=== PATIENT | male | born 1965 | race Caucasian/White ===

== ENCOUNTER 2017-08-13 10:17 | Emergency (ER) | payer SELFPAY ==
--- NOTE | 2017-08-13 10:52 | ERNOTE ---
Lower Extremity HPI - General Lower Extremities Pain: hip: left Time Seen by Provider: 08/13/17 10:23 Source: patient Exam Limitations: no limitations - Immun/Allergies/Home Medications Immunizations: IMMUNIZATION HX Immunizations Up to Date Yes History of Influenza Vaccine No Hx Pneumococcal Vaccination No Allergies/Adverse Reactions: Allergies Allergy/AdvReac Type Severity Reaction Status Date / Time No Known Allergies Allergy Verified 08/13/17 10:30 Home Medications: HOME MEDICATIONS Cyclobenzaprine HCl [Flexeril] 10 mg PO TID PRN #30 tab 08/13/17 [Last Taken Unknown] Naproxen [Naprosyn] 500 mg PO BID #60 tablet 08/13/17 [Last Taken Unknown] traMADol HCL [Ultram] 50 mg PO QID PRN #20 tablet 08/13/17 [Last Taken Unknown] - History of Present Illness Narrative: Patient was working on a roof yesterday and somehow lost his balance and fell approximately 10 feet landing on the left leg primarily and now has pain in the left knee left lumbosacral area and left sacroiliac region. Patient is having muscle spasms on the left side of the back as well that originated in the lumbosacral region. Occurred: yesterday Method of Injury: Reports: fell Reason for Fall: Reports: lost balance Loss of Consciousness: Reports: no loss of consciousness Associated Symptoms: Reports: other injuries - painful weightbearing on the left side Other Injuries: Reports: back, other - left knee Prior Treament: Reports: recently seen, other - patient was seen by his chiropractor yesterday and got a chiropractic adjustment Review of Systems - Review of Systems Constitutional: Present: See HPI EYE: Present: no symptoms reported ENT: Present: no symptoms reported Respiratory: Present: no symptoms reported Cardiology: Present: no symptoms reported Gastrointestinal/Abdominal: Present: no symptoms reported Genitourinary: Present: no symptoms reported Musculoskeletal: Present: See HPI Skin: Present: no symptoms reported Neurological: Present: no symptoms reported Endocrine: Present: no symptoms reported Hematologic/Lymphatic: Present: no symptoms reported Psych: Present: no symptoms reported - Patient's Past Medical History Patient History - Medical: No pertinent hx Patient History - Cardiac/Respiratory: No pertinent hx Patient History - Cancer: No Hx of Cancer Patient History - Surgical Procedures: Total Knee Replacement, Hernia Repair Patient History - Other: None - Social History Living Situations: home Abuse History: No History of abuse Psych History: No pertinent hx Smoking Status: Never smoker Alcohol Use: occasionally Drug Use: none - Immunizations Immunizations Up to Date: Yes Hx Pneumococcal Vaccination: No History of Influenza Vaccine: No Physical Exam - Physical Exam General Appearance: Present: wd/wn, alert, moderate distress Head Exam: Present: normal inspection Eye Exam: Normal inspection: bilateral, PERRL: bilateral Ears, Nose, Throat: Present: normal ENT inspection, H, normal pharynx Neck: Present: normal inspection, nontender Respiratory: Present: no respiratory distress, normal breath sounds, no accessory muscle use, chest nontender, lungs clear Cardiovascular/Chest: Present: regular rate, rhythm, no murmur, normal peripheral pulses Gastrointestinal/Abdominal: Present: normal bowel sounds, nontender, nondistended, soft, no organomegaly Rectal Exam: Present: deferred Back Exam: Present: vertebral tenderness, decreased range of motion, muscle spasm - pain appears to be primarily in the lumbosacral region Extremity Exam: Present: decreased range of motion, joint swelling, other - patient has pain and swelling in the left knee however was able to do weightbearing with some difficulty Neurological Exam: Present: alert, oriented, normal mood/affect Skin Exam: Present: normal color, warm/dry Lymphatic Exam: Present: no adenopathy ED Progress - Vital Signs Patient's Vital Signs:: I have reviewed the patient's vital signs. Vital Signs: Vital Signs 08/13/17 10:18 Temperature 36.7 C Pulse Rate 82 Respiratory 16 Rate Blood Pressure 143/92 O2 Sat by Pulse 100 Oximetry - X-Ray X-Ray #1 X-Ray: lumbosacral Interpretation: Reviewed by me X-Ray #2 X-Ray: hip Interpretation: Reviewed by me X-Ray #3 X-Ray: knee Interpretation: Reviewed by me - Progress/Reassessment Chief Complaint: Hip Pain/Injury Plan - Plan Plan: X-ray examination did not reveal any fractures and the possible fracture at T11 does not reveal any pain at that area. X-ray examination of the lumbosacral region appears to have a clinical diagnosis of a facet syndrome and this is exactly where his pain is as well. Patient will be started on a muscle relaxer , and NSAID and tramadol for breakthrough pain. He agrees to follow-up with his family physician as needed. Departure Clinical Impression: Lumbosacral ligament sprain Qualifiers: Encounter type: initial encounter Qualified Code(s): S33.5XXA - Sprain of ligaments of lumbar spine, initial encounter - Departure Disposition: Home self-care Condition: Good Instructions: Low Back Sprain With Rehab-SportsMed, Back Pain, Adult, Easy-to- Read Prescriptions: Cyclobenzaprine HCl [Flexeril] 10 mg PO TID PRN #30 tab PRN Reason: MUSCLE SPASMS Naproxen [Naprosyn] 500 mg PO BID #60 tablet traMADol HCL [Ultram] 50 mg PO QID PRN #20 tablet PRN Reason: Moderate Pain
[2017-08-13 11:23] VITALS: BP 107/63
== END 2017-08-13 11:40 | disposition home or self-care (01) ==
LOC: ER 10:17
DX: S33.5XXA Sprain of ligaments of lumbar spine, initial encounter (principal); W13.2XXA Fall from, out of or through roof, initial encounter; Y93.H3 Activity, building and construction; Y92.89 Other specified places as the place of occurrence of the external cause; Y99.9 Unspecified external cause status